=== PATIENT | female | born 1970 | race Caucasian/White ===

== ENCOUNTER 2023-09-26 22:27 | Inpatient (IN) | payer MEDICAID ==
[~2023-09-26] VITALS: Ht 162.6 cm; Wt 72.6 kg
[2023-09-26 22:37] VITALS: BP 167/99; PULSE 83; RESP 18; TEMP 97.4
[2023-09-26] MEDS ORDERED: LORazepam 2 MG/ML VIAL ONE ×2 (22:46→23:01)
[2023-09-26 23:35] VITALS: O2SAT 97
[2023-09-26 23:49] LABS: BASOPHILS # (AUTO) 0.1 K/uL (0.00-0.22); BASOPHILS % (AUTO) 0.7 % (0.0-2.0); EOSINOPHILS # (AUTO) 0.1 K/uL (0-0.4); EOSINOPHILS % (AUTO) 1.1 % (0.0-4.0); HEMATOCRIT 49.5 % (36-48); HEMOGLOBIN 16.9 g/dL (12.0-16.0); LYMPHOCYTES # (AUTO) 2.5 K/uL (2.5-16.5); LYMPHOCYTES % (AUTO) 22.9 % (20.5-51.1); MEAN CORPUSCULAR HEMOGLOBIN 31 pg (27-31); MEAN CORPUSCULAR HGB CONC 34 g/dL (33-37); MONOCYTES # (AUTO) 0.7 K/uL (0.8-1.0); MONOCYTES % (AUTO) 6.7 % (1.7-9.3); NEUTROPHILS # (AUTO) 7.5 K/uL (1.8-7.7); NEUTROPHILS % (AUTO) 68.6 % (42.2-75.2); PLATELET COUNT (AUTO) 224 K/uL (140-450); RED CELL DISTRIBUTION WIDTH 13.6 % (11.6-13.7)
[2023-09-27] VITALS (7 sets, daily range): BP systolic 116–142; BP diastolic 75–78; PULSE 79–92; RESP 14–18; TEMP 97.8–98.3; O2SAT 94–98
[2023-09-27 00:07] LABS: ANION GAP 22.7 (8-16); CALCIUM 9.6 mg/dL (8.5-10.1); CARBON DIOXIDE 18.6 mmol/L (21-32); CREATININE 0.9 mg/dL (0.6-1.3); POTASSIUM 3.3 mmol/L (3.5-5.1)
[2023-09-27 00:08] LABS: ALCOHOL, BLOOD < 3 mg/dL (<10)
[2023-09-27 00:09] LABS: ACETAMINOPHEN < 0.5 ug/ml (10-30); SALICYLATE < 2.8 mg/dL (2.8-20.0)
[2023-09-27 00:11] LABS: INR 0.93 (0.8-1.2); PARTIAL THROMBOPLASTIN TIME 23.8 secs (22-35.6); PROTHROMBIN TIME 9.8 secs (10.8-13.4)
[2023-09-27] MEDS ORDERED: levETIRAcetam 100 MG/ML VIAL IV ONE (01:13)
[2023-09-27] MEDS: levETIRAcetam 1,000 MG in NACL 0.9% 100 ML IV ONE (01:20)
[2023-09-27 02:30] LABS: AMPHETAMINE, URINE NEGATIVE ng/ml (NEG <=1000); BARBITURATE, URINE NEGATIVE ng/ml (NEG <=200); BENZODIAZEPINE, URINE POSITIVE ng/mL (NEG <=200); CANNABINOID, URINE NEGATIVE ng/mL (NEG <=50); COCAINE, URINE NEGATIVE ng/mL (NEG <=300); OPIATE, URINE NEGATIVE ng/mL (NEG <=2000); PHENCYCLIDINE SCREEN,URINE NEGATIVE ng/mL (NEG <=25)
[2023-09-27] MEDS ORDERED: LISI40TA12 PO (06:55)
[2023-09-27] MEDS ORDERED: METO100T14 PO (06:55)
[2023-09-27] MEDS ORDERED: NIFE-183 PO (06:55)
[2023-09-27] MEDS: NACL 0.9% 1,000 ML IV SCH (07:15)
[2023-09-27] MEDS ORDERED: MORPHINE SULFATE 2 MG/ML SYR IVP PRN (07:15)
[2023-09-27] MEDS ORDERED: ONDANSETRON 4 MG/2 ML VIAL IVP PRN (07:15)
[2023-09-27] MEDS ORDERED: ACETAMINOPHEN 325 MG TAB PO PRN (07:15)
[2023-09-27] MEDS: levETIRAcetam 500 MG in NACL 0.9% 100 ML IV SCH (10:33)
[2023-09-27] MEDS ORDERED: traMADol 50 MG TAB PO PRN (11:15)
[2023-09-27] MEDS: POTASSIUM CHLORIDE 10 MEQ TABER PO ONE (11:38)
[2023-09-27] MEDS ORDERED: POTASSIUM CHL 40 MEQ/ D5-1/2NS 1,000 ML IV SCH (11:40)
[2023-09-27] MEDS: KCL 20 MEQ IN 100 mL PREMIX 200 ML IV SCH (12:40)
[2023-09-27] MEDS: POTASSIUM CHLORIDE 40 MEQ, LIDOCAINE 1% 25 MG in NACL 0.9% 250 ML IV SCH (14:47)
[2023-09-27 17:22] LABS: APPEARANCE,URINE CLEAR (CLEAR); BILIRUBIN,URINE NEGATIVE (NEGATIVE); BLOOD, URINE NEGATIVE (NEGATIVE); COLOR,URINE YELLOW (YELLOW); LEUKOCYTE ESTERASE ,URINE NEGATIVE (NEGATIVE); NITRITE, URINE NEGATIVE (NEGATIVE); PROTEIN,URINE 2+ (NEGATIVE); UGLUCOSE NEGATIVE (NEGATIVE); UROBILINOGEN,URINE 0.2 EU/dL (0.2 - 1)
[2023-09-28] VITALS (7 sets, daily range): BP systolic 135–177; BP diastolic 74–95; PULSE 69–104; RESP 17–19; TEMP 97.3–98.2; O2SAT 95–99
[2023-09-28 06:51] LABS: BASOPHILS # (AUTO) 0.1 K/uL (0.00-0.22); BASOPHILS % (AUTO) 0.6 % (0.0-2.0); EOSINOPHILS # (AUTO) 0.1 K/uL (0-0.4); EOSINOPHILS % (AUTO) 1.5 % (0.0-4.0); HEMATOCRIT 45.2 % (36-48); HEMOGLOBIN 15.6 g/dL (12.0-16.0); LYMPHOCYTES # (AUTO) 2.9 K/uL (2.5-16.5); MEAN CORPUSCULAR HEMOGLOBIN 30 pg (27-31); MEAN CORPUSCULAR HGB CONC 35 g/dL (33-37); MEAN CORPUSCULAR VOLUME 88.1 fL (80-94); MONOCYTES # (AUTO) 0.7 K/uL (0.8-1.0); MONOCYTES % (AUTO) 7.6 % (1.7-9.3); NEUTROPHILS # (AUTO) 5.5 K/uL (1.8-7.7); NEUTROPHILS % (AUTO) 59.3 % (42.2-75.2); PLATELET COUNT (AUTO) 228 K/uL (140-450); RED BLOOD CELL COUNT(AUTO) 5.13 MIL/uL (4.20-5.40); RED CELL DISTRIBUTION WIDTH 13.4 % (11.6-13.7); WHITE BLOOD COUNT (AUTO) 9.3 K/uL (4.8-10.8)
[2023-09-28 07:11] LABS: ANION GAP 15.2 (8-16); CALCIUM 9.6 mg/dL (8.5-10.1); CARBON DIOXIDE 24.3 mmol/L (21-32); CREATININE 0.7 mg/dL (0.6-1.3); POTASSIUM 3.5 mmol/L (3.5-5.1)
[2023-09-28] MEDS ORDERED: MAG SULF 2000 MG/WATER PREMIX 50 ML IV PRN (08:30)
[2023-09-28] MEDS: MAG SULF 2000 MG/WATER PREMIX 50 ML IV PRN (09:08)
[2023-09-29] VITALS: BP 141/84; PULSE 86; PULSE 91; RESP 18; TEMP 96.8; O2SAT 96
[2023-09-29 04:00] VITALS: BP 105/70; PULSE 69; PULSE 78; RESP 17; TEMP 97; O2SAT 96
[2023-09-29 05:47] VITALS: BP 105/70; PULSE 69; RESP 17; TEMP 97
[2023-09-30] MEDS ORDERED: LORazepam 2 MG/ML VIAL IVP STA (06:26)
== END 2023-09-29 06:22 | disposition home or self-care (01) | DRG 52 ==
LOC: MED 22:27 → MTU 09-27 08:24
PROVIDERS: ADMIT Hospitalist; ATTEND Hospitalist
DX: G93.41 Metabolic encephalopathy (principal); R65.10 Systemic inflammatory response syndrome (SIRS) of non-infectious origin without acute organ dysfunction; G40.909 Epilepsy, unspecified, not intractable, without status epilepticus; I10 Essential (primary) hypertension; N39.0 Urinary tract infection, site not specified; Z79.899 Other long term (current) drug therapy
CPT/HCPCS: 36415; 70450; 71045; 71275; 80048; 80305; 81003; 83735; 83880; 84484; 85025; 85610; 85730; 93005; 96374; 99285; G0480; G0482; J0696; J1953; J2001; J2060; J3475; J3480; J7030; J7060; Q9967